=== PATIENT | female | born 1995 | race African-American/Black ===

== ENCOUNTER 2024-01-12 11:40 | Emergency (ER) | payer OTHER, SELFPAY ==
[2024-01-12 11:44] VITALS: BP 142/90; PULSE 92; RESP 16; TEMP 36.4; O2SAT 100
--- NOTE | 2024-01-12 12:16 | ED.GENADULT ---
HPI - General Adult General Chief complaint: Unspecified Stated complaint: rabies shot Time Seen by Provider: 01/12/24 11:43 Source: patient Mode of arrival: ambulatory Limitations: no limitations History of Present Illness HPI narrative: 28-year-old otherwise healthy here with a complete bat exposure at home. She is stated in she woke up she saw about an hour house. No bites. Related Data Allergies Allergy/AdvReac Type Severity Reaction Status Date / Time No Known Allergies Allergy Verified 01/12/24 11:47 Review of Systems Review of Systems: All systems reviewed & are unremarkable except as noted in HPI and below Constitutional: Constitutional: Reports no additional constitutional complaints Eyes: Eyes: Reports no additional eye complaints ENT: Reports system reviewed and no additional complaints, except as documented Cardiovascular: Cardiovascular: Reports no additional cardiovascular complaints Respiratory: Respiratory: Reports no additional respiratory complaints Gastrointestinal: Gastrointestinal: Reports no additional gastrointestinal complaints Integumentary/Breasts: Skin/Breast: Reports system reviewed and no additional complaints, except as docu Neurologic: Reports system reviewed and no additional complaints, except as documented Endocrine: Endocrine: Reports no additional endocrine complaints Hematologic/Lymphatic: Hematologic/Lymphatic: Reports no additional hematologic/lymphatic complaints Allergic/Immunologic: Allergic/Immunologic: Reports no additional allergic/immunologic complaints Exam Narrative: GENERAL: Well-appearing, well-nourished, and in no acute distress. HEAD: Normocephalic, atraumatic. EYES: PERRLA and EOMI. ENT: Nares clear, no rhinorrhea or epistaxis. Mucous membranes moist. NECK: Supple. CHEST: Clear to auscultation. No respiratory distress. HEART: Regular rate and rhythm. No murmur heard. Normal peripheral pulses. EXTREMITIES: Normal range of motion. No edema. SKIN: Warm, dry, no rash. NEURO: No focal deficits. Alert and oriented x3. PSYCH: Normal mood and affect. Course Course Emergency Course: Notified patient that she has to follows the rabies vaccination schedule. She is aware of fluid. Gilda was notified Vital Signs Vital signs: Vital Signs Temperature 36.4 C 01/12/24 11:44 Pulse Rate 92 01/12/24 11:44 Respiratory Rate 16 01/12/24 11:44 Blood Pressure 142/90 H 01/12/24 11:44 Pulse Oximetry 100 01/12/24 11:44 Oxygen Delivery Room Air 01/12/24 11:44 Temperature 36.4 C 01/12/24 11:44 Pulse Rate 92 01/12/24 11:44 Respiratory Rate 16 01/12/24 11:44 Blood Pressure 142/90 H 01/12/24 11:44 Pulse Oximetry 100 01/12/24 11:44 Oxygen Delivery Room Air 01/12/24 11:44 Medical Decision Making Vital Signs Vital Signs: Vital Signs Temperature 36.4 C 01/12/24 11:44 Pulse Rate 92 01/12/24 11:44 Respiratory Rate 16 01/12/24 11:44 Blood Pressure 142/90 H 01/12/24 11:44 Pulse Oximetry 100 01/12/24 11:44 Oxygen Delivery Room Air 01/12/24 11:44 Temperature 36.4 C 01/12/24 11:44 Pulse Rate 92 01/12/24 11:44 Respiratory Rate 16 01/12/24 11:44 Blood Pressure 142/90 H 01/12/24 11:44 Pulse Oximetry 100 01/12/24 11:44 Oxygen Delivery Room Air 01/12/24 11:44 Discharge Plan Discharge Clinical Impression: At increased risk for exposure to rabies virus Patient Disposition: Home, Self-Care Condition: Stable Instructions: Rabies Vaccine (By injection) Additional Instructions: Call Gilda Stuart, application counselor, to set up an appointment for your Day 3, 7, & 14 Vaccine. [phone]. Follow-up/Referrals: Anuja De La O MD [Physician] - PHYSICIAN,[employer] [employer] [Primary Care Provider] - Time of Disposition: 12:40
[2024-01-12] MEDS: RABIES VACCINE (RABAVERT) 2.5 UNITS VIAL IM (12:47)
--- NOTE | 2024-01-14 07:31 | PC.NURSE ---
01/13/2024 @ 1520: Patient to receive rabies immune globulin per [facility] guidelines that was not given in ED. Patient is to be seen at [facility] ([facility]) for next rabies and vaccine and rabies immunoglobulin on 01/15/2024. ED physician ordered consult for [facility] physician for globulin order. Dr. Vasile Johnston contacted at [phone] regarding consult for order. Dr. Johnston is agreeable.
== END 2024-01-12 12:52 | disposition home or self-care (01) ==
PROVIDERS: Emergency Provider Family Medicine
DX: Z29.14 Encounter for prophylactic rabies immune globulin (principal); Z20.3 Contact with and (suspected) exposure to rabies
CPT/HCPCS: 90471; 90675; 99282

== ENCOUNTER 2024-01-15 13:25 | Outpatient (CLI) | payer OTHER, SELFPAY ==
[2024-01-15 13:49] VITALS: BMI 35.4
[2024-01-15 14:04] VITALS: BP 118/74; PULSE 70; RESP 18; TEMP 36.3; O2SAT 97
[2024-01-15] MEDS: RABIES VACCINE (RABAVERT) 2.5 UNITS VIAL IM (14:05)
--- NOTE | 2024-01-15 17:50 | PC.NURSE ---
1400 patient here for injections. see mar. education went over voices an understanding. tolerated im injections. left on her own accord. to return saturdayjanuary 18 @ 10am next injection. voices an understanding.
== END 2024-01-15 13:26 | disposition home or self-care (01) ==
LOC: CHSTREATRM 13:27
PROVIDERS: Visit Provider Family Medicine
DX: Z20.3 Contact with and (suspected) exposure to rabies (principal); Z23 Encounter for immunization
CPT/HCPCS: 90375; 90675

== ENCOUNTER 2024-01-19 09:57 | Outpatient (CLI) | payer OTHER, SELFPAY ==
[2024-01-19 10:00] VITALS: BMI 35.4
[2024-01-19 10:10] VITALS: BP 128/64; PULSE 56; RESP 18; TEMP 36.3
[2024-01-19] MEDS: RABIES VACCINE (RABAVERT) 2.5 UNITS VIAL IM (10:20)
--- NOTE | 2024-01-19 10:30 | PC.NURSE ---
1000 here for op IM injection 1020 injection given left arm, tolerated well 1030 discharged ambulatory with no complaints, received education on day 1 did not feel need to have further education at this time, tolerated injection well, small bumps noted initially on first injection on the , but on the next day they were gone, advised to return as needed
== END 2024-01-19 09:58 | disposition home or self-care (01) ==
LOC: CHSLAB 10:03 → CHSTREATRM 10:07
PROVIDERS: Visit Provider Family Medicine
DX: Z20.3 Contact with and (suspected) exposure to rabies (principal); Z23 Encounter for immunization
CPT/HCPCS: 90471; 90675

== ENCOUNTER 2024-01-26 09:48 | Outpatient (CLI) | payer OTHER, SELFPAY ==
[2024-01-26] MEDS: RABIES VACCINE (RABAVERT) 2.5 UNITS VIAL IM (10:10)
--- NOTE | 2024-01-26 10:15 | PC.NURSE ---
Patient here for last dose of Rabies vaccine. Tolerated well to right deltoid. Education provided. Denies any questions. Patient left floor ambulatory.
--- NOTE | 2024-01-30 13:48 | PC.NURSE ---
01/30/2024 Finally got a hold of patient. Prescription from Dr. Johnston is for Rabies vaccine days 3,7, 14, 28. Patient was told from ED physician only days 3,7,14. She is declining day 28. Explained order to her again and respected her decisions.
== END 2024-01-26 09:49 | disposition home or self-care (01) ==
PROVIDERS: PCP Family Medicine; Visit Provider Family Medicine
DX: Z20.3 Contact with and (suspected) exposure to rabies (principal); Z23 Encounter for immunization
CPT/HCPCS: 90471; 90675